=== PATIENT | male | born 1970 | race Caucasian/White ===

== ENCOUNTER 2017-12-20 14:23 | Emergency (ER) | payer BC ==
[2017-12-20] MEDS ORDERED: Diph,Pert(Acell),Tet Vac 0.5 ML SYR IM ONE (14:33)
[2017-12-20] MEDS ORDERED: CEFAZOLIN 2 Gram 2 GM/50 ML BAG IVPB ONE (14:36)
[2017-12-20] MEDS ORDERED: ONDANSETRON HCL IV 4 MG/2 ML VIAL IVP ONE (14:48)
[2017-12-20] MEDS ORDERED: HYDROMORPHONE HCL 1 MG/ML SYRINGE IVP ONE ×2 (14:48→15:10)
--- NOTE | 2017-12-20 14:48 | Emergency Department Record ---
History of Present Illness - General Chief complaint: Extremity Problem Stated complaint: FINGER LACERATION Time Seen by Provider: 12/20/17 14:33 Source: Patient Mode of Arrival: Ambulatory Limitations: No limitations - History of Present Illness Initial comments: The patient crushed his R 5th finger in a log splitter an hour ago. It is mildly numb, and quite painful presently. His Td is not UTD MD Complaint: Extremity pain Onset/Timin -: Minutes(s) Location: Right, Hand History of Same: No Radiation: None Severity scale (1-10): 6 Quality: Crushing Consistency: Constant Improves with: Nothing Worsens with: Nothing Associated Symptoms: Denies other symptoms - Related Data Home Medications Medication Instructions Recorded Confirmed Last Taken Oseltamivir Phosphate 75 mg PO ASDIR 12/20/17 12/20/17 12/20/17 Previous Rx's Medication Instructions Recorded Benzonatate [Tessalon] 1 cap PO Q8H PRN #20 cap 10/13/16 Triamcinolone Acetonide [Nasacort] 1 spray NS DAILY #1 bottle 10/15/16 Allergies Allergy/AdvReac Type Severity Reaction Status Date / Time Penicillins Allergy HIVES Verified 12/20/17 14:28 codeine AdvReac FATIGUE Verified 12/20/17 14:28 Travel Screening - Travel/Exposure Within Last 30 Days Have you traveled within the last 30 days?: Yes Location Detail:: [place] - Travel/Exposure Within Last Year Have you traveled outside the [place] in the last year?: No - Additonal Travel Details Have you been exposed to anyone with a communicable illness?: No - Travel Symptoms Symptom Screening: None Past Medical History - SOCIAL HISTORY Smoking Status: Never smoker Alcohol Use: Occasional Drug Use: None - RESPIRATORY Hx Respiratory Disorders: No - CARDIOVASCULAR Hx Cardio Disorders: No - NEURO Hx Neuro Disorders: No - GI Hx GI Disorders: Yes Hx Reflux: Yes - Hx Genitourinary Disorders: No - ENDOCRINE Hx Endocrine Disorders: No - MUSCULOSKELETAL Hx Musculoskeletal Disorders: No - PSYCH Hx Psych Problems: No - HEMATOLOGY/ONCOLOGY Hx Hematology/Oncology Disorders: No Family Medical History Any Significant Family History?: No Physical Exam - General General Appearance: Alert, Cooperative, No acute distress - Head Head exam: Atraumatic, Normocephalic - Extremities Extremities exam: Tenderness (There is significant tissue loss to the 5th finger with exposed bone. ). negative: Normal inspection (The R 5th finger is very badly damaged. There is exposed bone present. The lac does go thru the nail bed.), Normal capillary refill Course Vital Signs 12/20/17 14:32 Pulse Rate 80 Respiratory 18 Rate Blood Pressure 130/90 Pulse Ox 98 - Reevaluation(s) Reevaluation #1: The patient is feeling better with the pain medicines and finger block. I did review the xrays and there is an open fx to the 5th finger DIP joint. Due to the amount of damage I did recommend referral to a hand specialist today and the patient agrees. I then did discuss the case with Dr. Read at the [facility] ED and he does accept the patient in transfer to the ER and will contact the hand specialist when the patient presents there. 12/20/17 15:00 Reevaluation #2: Finger Block: The R 5th finger was blocked with a 50:50 mixture of Lido 1% and Sensoricaine .25%. There was moderate success. 12/20/17 17:24 Disposition Disposition: Discharge Clinical Impression: Fracture, finger, open Qualifiers: Encounter type: initial encounter Finger: little finger Phalanx: distal Fracture alignment: displaced Laterality: right Qualified Code(s): S62.636B - Displaced fracture of distal phalanx of right little finger, initial encounter for open fracture Disposition: Acute Care Hospital Transfer Transfer To: [facility] Reason For Transfer: Hand Surgery Accepting Physician: Roro Time Discussed w/Accepting Physician: 15:03 Condition: (2) Stable Instructions: Finger Fracture (ED) Additional Instructions: Please proceed to the ER at [facility] for a hand surgery evaluation. Do not eat or drink on the way there. Forms: Patient Portal Access Quality - Quality Measures Quality Measures: N/A - Blood Pressure Screening View Details: Yes Does Patient Have Any of the Following: No Blood Pressure Classification: Pre-Hypertensive BP Reading Systolic Measurement: 130 Diastolic Measurement: 87 Screening for High Blood Pressure: < Pre-Hypertensive BP, F/U Documented > [ [id number]] Pre-Hypertensive Follow-up Interventions: Referral to alternative/primary care provider.
--- NOTE | 2017-12-21 11:07 | RADIOLOGY REPORT ---
DATE: 12/20/2017. EXAM: RIGHT HAND, TWO VIEWS. HISTORY: Trauma, laceration, fifth digit. TECHNIQUE: Two views of the right hand were obtained. FINDINGS: There is a large laceration along the dorsal aspect of the fifth distal interphalangeal joint. Associated volar dislocation of the fifth distal phalanx. Note is made of a comminuted fracture fragment as well along the lateral aspect on AP view. Prominent soft tissue swelling. IMPRESSION: LARGE LACERATION AT THE FIFTH DISTAL INTERPHALANGEAL JOINT LEVEL. VOLAR DISLOCATION OF THE FIFTH DISTAL PHALANX. COMMINUTED FRACTURE. JOB NUMBER: [id number] MTDD
== END 2017-12-20 15:26 | disposition short-term general hospital (02) ==
LOC: ER 14:23
DX: S62.636B Displaced fracture of distal phalanx of right little finger, initial encounter for open fracture (principal); R20.0 Anesthesia of skin; W31.2XXA Contact with powered woodworking and forming machines, initial encounter
CPT/HCPCS: 64450 ×2; 99284 ×2; 96372; 96365; 96375; 73120; J2405; J0690; J1170; 90715